=== PATIENT | male | born 1980 | race American Indian/Alaskan Native ===

== ENCOUNTER 2016-10-20 16:36 | Emergency (ER) | payer OTHER, BC ==
[2016-10-20 17:16] VITALS: BP 138/86
== END 2016-10-20 20:25 | disposition left against medical advice (07) ==
LOC: ED 16:36
DX: S50.312A Abrasion of left elbow, initial encounter (principal); S80.811A Abrasion, right lower leg, initial encounter; Z53.21 Procedure and treatment not carried out due to patient leaving prior to being seen by health care provider; V89.2XXA Person injured in unspecified motor-vehicle accident, traffic, initial encounter; Y93.9 Activity, unspecified; Y92.9 Unspecified place or not applicable; Y99.8 Other external cause status

== ENCOUNTER 2016-12-11 10:48 | Emergency (ER) | payer BC ==
[2016-12-11] MEDS ORDERED: MOTRIN PO ONE (13:45)
--- NOTE | 2016-12-11 14:23 | XRay Report ---
FINAL REPORT PROCEDURE: XR SPINE LUMBOSACRAL 2-3V TECHNIQUE: Three views of the lumbar spine are obtained HISTORY: fall with lowe back pain COMPARISON: No prior studies are available for comparison. FINDINGS: There is no scoliosis. There is 20 percent anterior loss of height of L1. This could be new or old. No spondylolisthesis is seen. No arthritic changes are seen. IMPRESSION: 20 percent anterior compression deformity of L1 may be new or old. Correlation with MRI may be useful.
--- NOTE | 2016-12-11 14:27 | XRay Report ---
FINAL REPORT PROCEDURE: XR HIP 2-3V RT TECHNIQUE: AP view of the pelvis and lateral view of the right hip were obtained HISTORY: fall with RT hip pain COMPARISON: No prior studies are available for comparison. FINDINGS: There is no fracture or dislocation. No arthritic changes are seen. Phlebolith is seen in the right side of the pelvis. IMPRESSION: No fracture is seen.
[2016-12-11 16:21] VITALS: BP 118/76
--- NOTE | 2016-12-12 08:21 | Emergency Department Report ---
Entered by LORA OLGUIN, acting as scribe for KAYLA WILCOX PA. ED Fall HPI - General Chief Complaint: Fall Stated Complaint: FALL Time Seen by Provider: 12/11/16 13:31 Source: patient Mode of arrival: Ambulatory Limitations: No Limitations - History of Present Illness Initial Comments: 36 y/o male with PMHx of back pain, presents to the ED c/o fall that occurred [employer]. Associated symptoms include right hip pain and lower back pain but he denies head injury, headache LOC and tingling, numbness to extremities.. Pain is described as 8/10 on a severity scale. Patient states he was standing on a 6 ft ladder on the second step from the top when his foot slipped and he fell back on concrete. No alleviating or aggravating factors. NKDA. Patient denies any loss of bowel or bladder function. Denies any nausea or vomiting. Denies any dizziness or blurred vision. MD Complaint: fall -: This morning Fall From: other (6ft ladder) When Fall Occurred: just prior to arrival Fall Witnessed: no Place Fall Occurred: home Loss of Consciousness: none Prolonged Down Time?: no Symptoms Prior to Fall: none Location: other (right hip ) Location - Extremities: Right: Thigh (right hip pain) Severity: severe Severity scale (0 -10): 8 Context: tripped/slipped (and slipped off ladder), other Associated Symptoms: denies: headache, neck pain, numbness, weakness, chest paint, shortness of breath, abdominal pain, hematuria, unable to walk, lightheaded, vertigo, confusion - Related Data Home Medications Medication Instructions Recorded Confirmed Last Taken cloNIDine [Catapres] 0.1 mg PO TID 10/20/16 10/20/16 10/19/16 Previous Rx's Medication Instructions Recorded Last Taken Type HYDROcodone/APAP 5-325 [[place] 1 each PO Q6HR PRN #12 tablet 12/11/16 Unknown Rx 5/325] Ibuprofen [Motrin] 600 mg PO Q8H PRN #15 tablet 12/11/16 Unknown Rx Allergies Allergy/AdvReac Type Severity Reaction Status Date / Time No Known Allergies Allergy Unverified 10/20/16 17:10 ED Review of Systems Comment: All other systems reviewed and negative Constitutional: no symptoms reported Eyes: denies: vision change ENT: denies: epistaxis Respiratory: no symptoms reported Cardiovascular: denies: chest pain, palpitations, edema, syncope Gastrointestinal: denies: abdominal pain, nausea, vomiting Genitourinary: denies: urgency, dysuria, frequency, hematuria, discharge, testicular pain, testicular mass Musculoskeletal: back pain, arthralgia, myalgia. denies: joint swelling Skin: denies: rash Neurological: abnormal gait (patient limp to right lower extremity due to right hip pain). denies: headache, weakness, numbness, paresthesias, confusion , other (LOC) ED Past Medical Hx - Past Medical History Previous Medical History?: Yes Additional medical history: Hx. of back fx. - Surgical History Past Surgical History?: Yes Additional Surgical History: Hernia surgery - Family History Family history: no significant - Social History Smoking Status: Never Smoker Substance Use Type: Non Opiate Pain - Medications Home Medications: Home Medications Medication Instructions Recorded Confirmed Last Taken Type cloNIDine [Catapres] 0.1 mg PO TID 10/20/16 10/20/16 10/19/16 History HYDROcodone/APAP 5-325 [[place] 1 each PO Q6HR PRN #12 tablet 12/11/16 Unknown Rx 5/325] Ibuprofen [Motrin] 600 mg PO Q8H PRN #15 tablet 12/11/16 Unknown Rx ED Physical Exam - General Limitations: No Limitations General appearance: alert, in no apparent distress - Head Head exam: Present: atraumatic, normocephalic, normal inspection - Expanded Head Exam Expanded Head exam: Absent: laceration, abrasion, contusion, hematoma, racoon eyes, christian's sign, general tenderness, tenderness of temporal artery, CSF rhinorrhea , CSF otorrhea - Eye Eye exam: Present: normal appearance, PERRL, EOMI. Absent: nystagmus, periorbital swelling, periorbital tenderness Pupils: Present: normal accommodation - ENT ENT exam: Present: normal exam, normal orophraynx, mucous membranes moist, TM's normal bilaterally, normal external ear exam - Neck Neck exam: Present: normal inspection, full ROM. Absent: tenderness, meningismus, lymphadenopathy - Expanded Neck Exam Expanded Neck exam: Absent: tenderness, midline deformity, anterior neck swelling, tracheal deviation - Respiratory Respiratory exam: Present: normal lung sounds bilaterally. Absent: respiratory distress, chest wall tenderness - Cardiovascular Cardiovascular Exam: Present: regular rate, normal rhythm, normal heart sounds - GI/Abdominal GI/Abdominal exam: Present: soft, normal bowel sounds. Absent: tenderness, guarding, rebound, rigid - Extremities Exam Extremities exam: Present: full ROM (with pain), other (+abduction/adduction with pain, minimal squat, - numbness/tingling, right hip pain posteriorly no bruising/erythema/swelling) - Back Exam Back exam: Present: normal inspection, full ROM. Absent: tenderness, CVA tenderness (R), CVA tenderness (L), muscle spasm, paraspinal tenderness, vertebral tenderness, rash noted - Expanded Back Exam Expanded Back exam: Absent: saddle anesthesia Back exam: Negative Straight Leg Raising: Left, Right - Neurological Exam Neurological exam: Present: alert, oriented X3, abnormal gait (abnormal gait right lower extremity due to right hip injury and pain), reflexes normal - Expanded Neurological Exam Expanded Neurological exam: Absent: innattentive, memory loss-remote event, memory loss- recent event, ataxia, receptive aphasia, expressive aphasia, total aphasia, tremor, protecting the airway Patient oriented to: Present: person, place, time Speech: Present: fluid speech Cranial nerves: EOM's Intact: Normal, Gag Reflex: Normal, Tongue Deviation: Normal, Nystagmus: Normal, Facial Sensation: Normal Cerebellar function: Romberg: Normal Upper motor neuron: Pronator Drift: Normal, Sensory Extinction: Normal Sensory exam: Upper Extremity Light Touch: Normal, Upper Extremity Pin Prick: Normal, Upper Extremity Temperature: Normal, UE 2 Point Discrimination: Normal, Lower Extremity Light Touch: Normal, Lower Extremity Pin Prick: Normal, Lower Extremity Temperature: Normal, LE 2 Point Discrimination: Normal Motor strength exam: RUE: 5, LUE: 5, RLE: 5, LLE: 5 DTR: bicep (R): 2+, bicep (L): 2+, tricep (R): 2+, tricep (L): 2+, knee (R): 2+ , knee (L): 2+, ankle (R): 2+, ankle (L): 2+ Best Eye Response ([place]): (4) open spontaneously Best Motor Response ([place]): (6) obeys commands Best Verbal Response ([place]): (5) oriented [place] Total: 15 - Psychiatric Psychiatric exam: Present: normal affect, normal mood - Skin Skin exam: Present: warm, dry, intact, normal color. Absent: rash ED Course Vital Signs 12/11/16 12/11/16 12/11/16 10:52 13:50 15:40 Temperature 98.8 F Pulse Rate 78 57 L Respiratory 20 18 18 Rate Blood Pressure 120/82 Blood Pressure 118/76 [Left] O2 Sat by Pulse 100 100 Oximetry - Reevaluation(s) Reevaluation #2: 12/11/16 15:23 Patient given Motrin 800 mg in emergency room for pain. Reevaluation #3: 12/11/16 15:2 - Consultations Consultation #1: 12/11/16 15:26 Dr. Arriaza neurosurgery ED Medical Decision Making - Radiology Data Radiology results: report reviewed X-ray of right hip revealed no acute fracture or dislocation. X-ray of lumbar spine reveals 20% anterior compression deformity of L1 may be new or old. Patient did have fracture of back previously. Correlation with MRI may be useful. - Medical Decision Making ED course: Patient status post fall off ladder with lower back pain and right hip pain. X-ray of right hip reveal no acute fracture or dislocation and x-ray of lumbar spine at L1 revealed compression deformity at 20% questioning whether old or new. Patient is not having any new symptoms and he had previous episode of fracture back. He is neurologically intact and he is not having any numbness or tingling or loss of bowel or bladder function. Patient is limping to is right lower extremity due to left hip pain. I spoke with Dr. Arriaza who gave the okay for patient to follow up outpatient. I discuss x-ray results , diagnosis and treatment rendered patient and he voiced understanding and is in agreement. Patient will call neurosurgery office on Tuesday to schedule appointment for outpatient visit. Patient discharged home in stable condition with prescription for [place] and Motrin. ED Disposition Clinical Impression: Acute exacerbation of chronic low back pain, Compression deformity of vertebra , Arthralgia of right hip Accidental fall from ladder Qualifiers: Encounter type: initial encounter Qualified Code(s): W11.XXXA - Fall on and from ladder, initial encounter Disposition: - TO HOME OR SELFCARE Is pt being admited?: No Does the pt Need Aspirin: No Condition: Stable Instructions: Arthralgia (ED), Back Pain (ED) Additional Instructions: Your x-ray of the lumbar spine shows that you have a compression deformity of L1 which may be new or old so he will need to follow-up with neurosurgery outpatient. Please call and Tuesday to schedule an appointment. If you develop, numbness or tingling to extremity, bowel or bladder incontinence , difficulty urinating, sharp and/or stabbing pain in the lower extremities and increase in intensity of lower back pain please return to the emergency room [facility] otherwise follow-up with neurosurgery outpatient. [place] will make you drowsy so please do not drive or operate heavy machinery while taking this medication. Rest for 72 hours Prescriptions: HYDROcodone/APAP 5-325 [[place] 5/325] 1 each PO Q6HR PRN #12 tablet PRN Reason: Pain Ibuprofen [Motrin] 600 mg PO Q8H PRN #15 tablet PRN Reason: Pain Referrals: MILA ARRIAZA MD [Staff Physician] - 12/13/16 Forms: Accompanied Note, Work/School Release Form(ED) This documentation as recorded by the CLAU cat ELIZABETH,accurately reflects the service I personally performed and the decisions made by ,KAYLA WILCOX PA.
== END 2016-12-11 15:40 | disposition home or self-care (01) ==
LOC: ED 10:48
DX: M54.5 Low back pain (principal); M25.551 Pain in right hip; W11.XXXA Fall on and from ladder, initial encounter; Y93.89 Activity, other specified; Y99.8 Other external cause status; Y92.098 Other place in other non-institutional residence as the place of occurrence of the external cause
CPT/HCPCS: 72100; 99283